=== PATIENT | female | born 1980 | race Caucasian/White ===

== ENCOUNTER 2017-06-01 22:22 | Outpatient (CLI) | payer SELFPAY ==
[~2017-06-01] VITALS: Ht 157.5 cm; Wt 89.1 kg
[2017-06-01] MEDS ORDERED: IRON TABLETS325 MG PO (22:46)
[2017-06-01] MEDS ORDERED: PRENATAL MVI (22:46)
[2017-06-01 23:18] VITALS: BP 115/68; PULSE 104; TEMP 97.4
== END 2017-06-01 23:30 | disposition home or self-care (01) ==
LOC: LDRO 22:22
DX: O26.893 Other specified pregnancy related conditions, third trimester (principal); W10.9XXA Fall (on) (from) unspecified stairs and steps, initial encounter; Z3A.28 28 weeks gestation of pregnancy

== ENCOUNTER 2017-07-24 18:15 | Outpatient (CLI) | payer OTHER ==
[~2017-07-24] VITALS: Ht 157.5 cm; Wt 95.5 kg
[~2017-07-24 18:15] MED LIST: IRON TABLETS325 MG PO; PRENATAL MVI
[2017-07-24 18:36] VITALS: BP 137/83; PULSE 104; TEMP 97.8
[2017-07-24 19:16] VITALS: BP 112/71; PULSE 105
== END 2017-07-24 19:30 | disposition home or self-care (01) ==
LOC: LDRO 18:15
DX: O76 Abnormality in fetal heart rate and rhythm complicating labor and delivery (principal); Z3A.35 35 weeks gestation of pregnancy

== ENCOUNTER 2017-08-11 14:54 | Outpatient (CLI) | payer OTHER ==
[~2017-08-11] VITALS: Ht 157.5 cm; Wt 96.4 kg
[2017-08-11 15:17] VITALS: BP 118/76; PULSE 93; TEMP 98.2
[2017-08-11] MEDS ORDERED: TYLENOL PM EXTR1 TA1 PO (15:22)
[2017-08-11] MEDS ORDERED: TYLENOL 500MG500 MG (15:22)
[2017-08-11 15:31] VITALS: BP 124/75; PULSE 93; TEMP 98.3
== END 2017-08-11 16:40 | disposition home or self-care (01) ==
LOC: LDRO 14:54 → LDR 15:00 → LDRO 16:40
DX: O62.9 Abnormality of forces of labor, unspecified (principal); Z3A.38 38 weeks gestation of pregnancy
CPT/HCPCS: OP

== ENCOUNTER 2017-08-15 07:14 | Inpatient (IN) | payer OTHER ==
[~2017-08-15] VITALS: Ht 157.6 cm; Wt 100.0 kg
[2017-08-15] VITALS (7 sets, daily range): BP systolic 116–129; BP diastolic 56–78; PULSE 96–121; TEMP 98.1–98.2
[~2017-08-15 07:14] MED LIST changes: +TYLENOL 500MG500 MG; +TYLENOL PM EXTR1 TA1 PO
[2017-08-15 20:28] LABS: BASO # 0.1 (0.0-0.2); BASO % 0.4 % (0.0-2.0); EOS # 0.1 (0.0-0.7); EOS % 0.9 % (0-4.0); GRAN % 72.2 % (42.2-75.2); HEMOGLOBIN 12.4 g/dl (12.5-16.0); LYMPH # 2.4 (1.2-3.4); LYMPH % 19.3 % (20.0-51.0); MEAN CELL VOLUME 93 fl (80.0-100.0); MEAN CORPUSCULAR HEMOGLOBIN 32 pg (27.0-31.0); MEAN CORPUSCULAR HGB CONC 34 g/dl (33.0-37.0); MEAN PLATELET VOLUME 9.4 fl (7.4-10.4); MONO # 0.8 (0.1-0.6); MONO % 6.2 % (1.7-9.3); PLATELET COUNT 318 K/mm3 (130-400); RED BLOOD COUNT 3.87 M/mm3 (4.10-5.30); REDCELL DISTRIBUTION WIDTH-CV 15.3 % (11.5-14.5)
[2017-08-15 20:29] LABS: HEMATOCRIT 36.1 % (37.0-47.0)
[2017-08-16] VITALS (40 sets, daily range): BP systolic 91–137; BP diastolic 50–78; PULSE 73–116; TEMP 97.4–98.2
[2017-08-17 04:15] VITALS: BP 116/64; PULSE 88
[2017-08-17 07:30] VITALS: BP 113/61; PULSE 91; TEMP 98.3
[2017-08-17 13:30] VITALS: BP 115/65; PULSE 80; TEMP 98.1
[2017-08-17 20:10] VITALS: BP 122/60; PULSE 84; TEMP 97.8
[2017-08-18 06:45] VITALS: BP 112/71; PULSE 78; TEMP 98
[2017-08-18] MEDS ORDERED: NORCO 325 MG-51 TAB PO (07:52)
[2017-08-18] MEDS ORDERED: IBU600 MG PO (07:52)
[2017-08-18 16:50] VITALS: BP 117/69; PULSE 79; TEMP 98.2
[2017-08-18 20:45] VITALS: BP 123/72; PULSE 90; TEMP 98.7
[2017-08-19 06:35] VITALS: BP 114/66; PULSE 78; TEMP 98.1
== END 2017-08-19 12:05 | disposition home or self-care (01) | DRG 766 ==
LOC: OB 07:14 → LDR 19:34 → OB 19:34
PROVIDERS: Obstetrics & Gynecology
PROC: 10D00Z1 Extraction of Products of Conception, Low, Open Approach (ICD-10-PCS; principal; 2017-08-16)
DX: O69.0XX0 Labor and delivery complicated by prolapse of cord, not applicable or unspecified (principal); O76 Abnormality in fetal heart rate and rhythm complicating labor and delivery; Z3A.39 39 weeks gestation of pregnancy; Z37.0 Single live birth
CPT/HCPCS: J0171; J0690; J1885; J2175; J2370; J2405; J2590; J3010; J7120

== ENCOUNTER → 2017-09-12 | Outpatient (CLI) | payer OTHER ==
[~2017-09-12] MED LIST changes: +IBU600 MG PO; +NORCO 325 MG-51 TAB PO
== END ==
LOC: LAC 14:46
DX: Z39.1 Encounter for care and examination of lactating mother (principal); Z71.89 Other specified counseling

== ENCOUNTER → 2018-05-19 | Outpatient (CLI) | payer OTHER ==
[2018-05-19 20:27] LABS: BASO % 0.5 % (0.0-2.0); EOS % 0.7 % (0-4.0); GRAN # 2.5 (1.4-6.5); GRAN % 61.5 % (42.2-75.2); HEMATOCRIT 37.8 % (37.0-47.0); HEMOGLOBIN 12.4 g/dl (12.5-16.0); LYMPH # 1.2 (1.2-3.4); LYMPH % 30.2 % (20.0-51.0); MEAN CELL VOLUME 91 fl (80.0-100.0); MEAN CORPUSCULAR HEMOGLOBIN 30 pg (27.0-31.0); MEAN CORPUSCULAR HGB CONC 33 g/dl (33.0-37.0); MEAN PLATELET VOLUME 9.1 fl (7.4-10.4); MONO # 0.3 (0.1-0.6); MONO % 6.9 % (1.7-9.3); PLATELET COUNT 212 K/mm3 (130-400); RED BLOOD COUNT 4.17 M/mm3 (4.10-5.30); REDCELL DISTRIBUTION WIDTH-CV 12.8 % (11.5-14.5)
[2018-05-19 21:08] LABS: ALBUMIN 3.7 gm/dL (3.5-5.0); BILIRUBIN,TOTAL 0.3 mg/dL (0.0-1.0); CALCIUM 8.4 mg/dL (8.4-10.2); CREATININE, serum 0.86 mg/dL (0.52-1.25); TOTAL PROTEIN 6.4 gm/dL (6.4-8.2)
== END ==
LOC: COL.LAB 19:50
PROVIDERS: Physician Assistant
DX: R10.812 Left upper quadrant abdominal tenderness (principal)

== ENCOUNTER → 2018-05-23 | Outpatient (CLI) | payer OTHER | LOC: COL.RAD 12:28 | DX: R10.11 Right upper quadrant pain (principal) ==

== ENCOUNTER → 2018-06-05 | Outpatient (CLI) | payer OTHER | LOC: COL.RAD 11:57 | DX: R11.2 Nausea with vomiting, unspecified (principal); R10.11 Right upper quadrant pain | CPT/HCPCS: A9537 ==

== ENCOUNTER 2019-05-31 19:30 | Emergency (ER) | payer BC ==
[~2019-05-31] VITALS: Ht 157.5 cm; Wt 63.6 kg
[2019-05-31 19:49] VITALS: TEMP 97.1
[2019-05-31 20:36] LABS: BASO # 0.1 (0.0-0.2); BASO % 0.9 % (0.0-2.0); EOS # 0.1 (0.0-0.7); EOS % 1.4 % (0-4.0); GRAN # 4.4 (1.4-6.5); GRAN % 50.4 % (42.2-75.2); HEMATOCRIT 40.1 % (37.0-47.0); HEMOGLOBIN 13.2 g/dl (12.5-16.0); LYMPH # 3.6 (1.2-3.4); LYMPH % 41.2 % (20.0-51.0); MEAN CELL VOLUME 91 fl (80.0-100.0); MEAN CORPUSCULAR HEMOGLOBIN 30 pg (27.0-31.0); MEAN CORPUSCULAR HGB CONC 33 g/dl (33.0-37.0); MEAN PLATELET VOLUME 9.1 fl (7.4-10.4); MONO # 0.5 (0.1-0.6); MONO % 5.8 % (1.7-9.3); PLATELET COUNT 383 K/mm3 (130-400); RED BLOOD COUNT 4.43 M/mm3 (4.10-5.30); REDCELL DISTRIBUTION WIDTH-CV 12.8 % (11.5-14.5)
[2019-05-31 20:45] LABS: ALANINE AMINOTRANSFERASE 14 U/L (9-52); ALBUMIN 4.3 gm/dL (3.5-5.0); ALKALINE PHOSPHATASE 47 U/L (50-136); ANION GAP 8 mmol/L (7-16); AST,SGOT 22 U/L (15-37); BILIRUBIN,TOTAL 0.3 mg/dL (0.0-1.0); BLOOD UREA NITROGEN 19 mg/dL (7-17); CALCIUM 9.2 mg/dL (8.4-10.2); CARBON DIOXIDE 28 mmol/L (22-30); CHLORIDE 103 mmol/L (98-107); CREATININE, serum 0.86 (0.52-1.25); GLUCOSE 86 mg/dL (74-106); LIPASE 75 U/L (23-300); POTASSIUM 3.9 mmol/L (3.4-5.0); SODIUM 139 mmol/L (137-145); TOTAL PROTEIN 7.3 gm/dL (6.4-8.2)
[2019-05-31 20:57] LABS: TROPONIN-I < 0.012 ng/mL (0.000-0.035)
[2019-05-31] MEDS ORDERED: PRILOTC PO (22:09)
[2019-05-31] MEDS ORDERED: CARAFATE 1GM1 G PO (22:09)
[2019-05-31 22:26] VITALS: BP 95/61; PULSE 64
== END 2019-05-31 22:26 | disposition home or self-care (01) ==
LOC: COL.ER 19:30
PROVIDERS: Emergency Medicine
DX: K21.9 Gastro-esophageal reflux disease without esophagitis (principal); K20.9 Esophagitis, unspecified; Z88.0 Allergy status to penicillin; Z87.891 Personal history of nicotine dependence; Z98.890 Other specified postprocedural states
CPT/HCPCS: J2405

== ENCOUNTER → 2019-12-16 | Outpatient (CLI) | payer BC, OTHER ==
[~2019-12-16] MED LIST changes: +CARAFATE 1GM1 G PO; +PRILOTC PO
== END ==
LOC: ZCOL.LAB 15:52
DX: Z20.828 Contact with and (suspected) exposure to other viral communicable diseases (principal)

== ENCOUNTER 2020-08-21 09:16 | Day surgery (SDC) | payer OTHER ==
[~2020-08-21] VITALS: Ht 157.5 cm; Wt 72.2 kg
[2020-08-21 09:40] VITALS: BP 106/59; PULSE 73; TEMP 97.8
[2020-08-21] MEDS ORDERED: PRILOSEC 20MG20 MG PO (09:51)
[2020-08-21] MEDS ORDERED: ONE-A-DAY ESSE1 EACH PO (09:52)
[2020-08-21] MEDS ORDERED: PROBIOTIC 2 BI1 EACH PO (09:53)
--- NOTE | 2020-08-21 11:18 | NUR ---
IV SITE TO LEFT AC DISCONTINUED. NO REDNESS OR SWELLING. PRESSURE APPLIED AND SECURED WITH COTTON BALL AND COBAN.
[2020-08-21 11:46] VITALS: BP 97/40; PULSE 70; TEMP 98.1
--- NOTE | 2020-08-21 11:46 | NUR ---
PATIENT TO RECOVERY BAY 7 POST PROCEDURE VIA CART ACCOMPANIED BY Peter ORTIZ RN. PATIENT AMBULATORY TO CHAIR WITH 1 PERSON ASSIST. MADE COMFORTABLE IN CHAIR, GIVEN WARM BLANKET. VITAL SIGNS DONE. WNL. REPORT FROM Peter ORTIZ RN. GIVEN WATER AND APPLE SAUCE. DENIES PAIN OR NAUSEA.
--- NOTE | 2020-08-21 11:53 | NUR ---
AT BEDSIDE TO DISCUSS FINDINGS OF PROCEDURE WITH PATIENT
[2020-08-21 12:00] VITALS: BP 106/70; PULSE 69
[2020-08-21 12:15] VITALS: BP 102/67; PULSE 67
--- NOTE | 2020-08-21 12:18 | NUR ---
IV SITE TO LEFT AC DISCONTINUED. NO REDNESS OR SWELLING. PRESSURE APPLIED, SECURED WITH COTTON BALL AND COBAN
--- NOTE | 2020-08-21 12:31 | NUR ---
PATIENT GIVEN HARD COPIES OF EDUCATION AND DISMISSAL INSTRUCTIONS. VERBAL REVIEW OF EDUCATION AND DISMISSAL INSTRUCTIONS GIVEN. PATIENT GIVES VERBAL UNDERSTANDING. SIGNS IN ACKNOWLEGMENT OF UNDERSTANDING. DENIES QUESTIONS.
--- NOTE | 2020-08-21 12:38 | NUR ---
PATIENT ESCORTED OUT VIA WHEELCHAIR BY JN RN TO WAITING GRAIN RECEIVER. ASSISTED TO VEHICLE.
== END 2020-08-21 12:38 | disposition home or self-care (01) ==
LOC: SDCO 09:16
DX: K21.00 Gastro-esophageal reflux disease with esophagitis, without bleeding (principal); K29.70 Gastritis, unspecified, without bleeding; K29.80 Duodenitis without bleeding; K44.9 Diaphragmatic hernia without obstruction or gangrene; Z88.0 Allergy status to penicillin; Z88.5 Allergy status to narcotic agent; Z20.822 Contact with and (suspected) exposure to COVID-19; Z79.899 Other long term (current) drug therapy; Z80.8 Family history of malignant neoplasm of other organs or systems; Z87.891 Personal history of nicotine dependence; Z90.89 Acquired absence of other organs; Z80.3 Family history of malignant neoplasm of breast
CPT/HCPCS: J2704; J7120